=== PATIENT | male | born 1995 | race Caucasian/White ===

== ENCOUNTER 2022-05-27 10:24 | Emergency (ER) | payer OTHER ==
[~2022-05-27] VITALS: Ht 172.7 cm; Wt 79.1 kg
[2022-05-27 12:05] LABS: BASO % 0.3 % (0.0-1.0); EOS # 0.1 10^3/uL (0.0-0.5); EOS % 0.8 % (0.0-3.0); HEMATOCRIT 46.4 % (42.0-52.0); HEMOGLOBIN 16.1 g/dl (13.5-17.5); LYMPH # 1.8 10^3/uL (1.5-5.0); LYMPH % 28.4 % (24.0-44.0); MEAN CORPUSCULAR HEMOGLOBIN 31.6 pg (27.0-33.0); MEAN CORPUSCULAR HGB CONC 34.7 g/dl (32.0-36.5); MONO # 0.7 10^3/uL (0.0-0.8); MONO % 10.6 % (2.0-8.0); NEUTROPHILS # 3.7 10^3/uL (1.5-8.5); NEUTROPHILS % 59.7 % (36.0-66.0); PLATELET COUNT, AUTOMATED 201 10^3/uL (150-450); WHITE BLOOD COUNT 6.2 10^3/uL (4.0-10.0)
[2022-05-27] MEDS ORDERED: NS 1,000 ML IV ONE (12:20)
[2022-05-27 12:28] LABS: BLOOD UREA NITROGEN 12 MG/DL (9-23); CALCIUM LEVEL 9.6 MG/DL (8.5-10.1); CARBON DIOXIDE LEVEL 30 MMOL/L (20-31); CHLORIDE LEVEL 101 MMOL/L (98-107); CREATININE FOR GFR 0.95 MG/DL (0.70-1.30); GLOMERULAR FILTRATION RATE > 60.0 (>60); GLUCOSE, FASTING 91 MG/DL (60-100); SODIUM LEVEL 137 MMOL/L (136-145)
[2022-05-27] MEDS ORDERED: ISOVUE-370 76% 100ML VIAL As Ordered ONE (13:19)
[2022-05-27 13:20] LABS: ALBUMIN 4.6 G/DL (3.2-5.2); BILIRUBIN,DIRECT 0.3 MG/DL (<0.4); INR 0.98; PROTHROMBIN TIME 13.2 SECONDS (12.5-14.5); TOTAL PROTEIN 7.5 G/DL (5.7-8.2)
[2022-05-27 13:21] LABS: PARTIAL THROMBOPLASTIN TIME 26.2 SECONDS (24.8-34.2)
[2022-05-27] MEDS ORDERED: COLA100C5 PO (16:40)
[2022-05-27] MEDS ORDERED: METR-265 PO (17:31)
[2022-05-27] MEDS ORDERED: CIPR-249 PO (17:31)
[2022-05-27] MEDS ORDERED: PROC1AER16 PR (17:32)
[2022-05-27 17:38] VITALS: BP 133/80
== END 2022-05-27 17:42 | disposition home or self-care (01) ==
LOC: M ED 10:24
DX: K92.2 Gastrointestinal hemorrhage, unspecified (principal); F17.200 Nicotine dependence, unspecified, uncomplicated; F10.10 Alcohol abuse, uncomplicated; Z79.2 Long term (current) use of antibiotics; Z79.899 Other long term (current) drug therapy
CPT/HCPCS: 36415; 74177; 80048; 80076; 83605; 83690; 85025; 85610; 85730; 96360; 96361; 99284; Q9967